=== PATIENT | male | born 1995 | race Caucasian/White ===

== ENCOUNTER 2019-12-09 09:40 | Emergency (ER) | payer MEDICAID, OTHER ==
[~2019-12-09] VITALS: Ht 170.2 cm; Wt 98.7 kg
[2019-12-09 09:46] VITALS: BP 123/79
[2019-12-09] MEDS ORDERED: ESCI10TA10 PO (10:01)
[2019-12-09] MEDS ORDERED: LURA40TA PO (10:01)
--- NOTE | 2019-12-09 10:02 | NUR ---
pt ambulated to room with a steady gait. pt in with complaints of cough and needing to refill medications. pt verablized he recently moved
[2019-12-09 10:50] LABS: RAPID INFLUENZA A Negative (Negative); RAPID INFLUENZA B Negative (Negative)
--- NOTE | 2019-12-09 11:01 | NUR ---
Patient given discharge instructions and they have confirmed that they understand the instructions. pt verbalized understanding to take perscribe medications as ordered. Patient ambulatory with steady gait.
== END 2019-12-09 11:31 | disposition home or self-care (01) ==
LOC: ED 11:00
DX: B34.9 Viral infection, unspecified (principal); Z76.0 Encounter for issue of repeat prescription
CPT/HCPCS: 71046; 87400; 93005; 99285